=== PATIENT | female | born 1960 | race Caucasian/White ===

== ENCOUNTER 2017-01-22 08:18 | Day surgery (SDC) | payer BC ==
[~2017-01-22] VITALS: Ht 175.3 cm; Wt 100.2 kg
--- NOTE | 2017-01-22 10:10 | Operative Note ---
Colonoscopy ([facility]) Procedure date: 01/22/17 Date of : 60 Procedure:Colonoscopy Colonoscopy with cold biopsies Indications: Mrs. Phipps is a 56-year-old female who recently had a pulmonary embolus bilaterally and was placed on Xarelto. After initiation of this anticoagulation, she developed rectal bleeding which was bright red blood. This subsided after switching to Lovenox. The patient has had no prior colonoscopy. She reports no abdominal pain but has had some RIGHT flank pain since September 2016. She reports no change in bowel habits, weight loss or family history of colon cancer. She was scheduled for colonoscopy before her anticoagulation is adjusted and she is due to go on Eloquis. Performing Provider: Gela Dickerson MD Referrring Provider: Augustin Tamayo M.D./Yung Alex M.D. (hematology/oncology) Sedation: MAC sedation Procedure: Prior to the procedure, a history and physical exam was performed, and patient medications and allergies were reviewed. The risks and benefits of the procedure and the sedation options and risks were discussed with the patient. All questions were answered and informed consent was obtained. Patient identification and proposed procedure were verified by the physician and the nurse. The patient was placed in a left lateral decubitus position. Throughout the procedure, the patient's blood pressure, pulse, and oxygen saturations were monitored continuously. Findings: On digital rectal examination there was normal rectal tone. There were no external hemorrhoids. The colonoscope was introduced through the anal canal to the rectum and advanced to the cecum. The ileocecal valve and appendiceal orifice were identified. The scope was advanced a short distance into the ileum which appeared grossly normal. The scope was then withdrawn into the colon. The cecum, ascending, transverse, descending and sigmoid colon were normal. When the colonoscope was withdrawn into the rectum there was a bulging mass that was umbilicated with central cavitation and strongly suspicious for tumor. This was palpated digitally and was on the LEFT wall of the rectum approximately 8-9 cm from the anal verge. This was very fixed and appeared to be immobile from the underlying pelvic bony structure. Multiple biopsies were obtained. Impressions: 1. 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 I will discuss with her oncologist. I would consider preoperative chemoradiation. She also may require rectal ultrasound for staging. Based upon digital exam, I do feel that this is locally advanced. This is the cause of her bleeding. We will need to discuss anticoagulation as well. Complications: None EBL (ml): 0 at 1010
--- NOTE | 2017-01-22 10:18 | Anesthesia Record ---
Anesthesia Record Part I Total IV fluids: 500 EBL (ml): 0 Urine Output: 0 B/P: 88/42 % SaO2: 96 Pulse: 81 Resps: 16 Temp: 98.1 Patient is: Drowsy, Stable Stable to PACU at: 1007 at 1018
--- NOTE | 2017-01-22 10:19 | Anesthesia Record ---
Anesthesia Record Part II Discharge time: 1037 Destination: HOME PACU nurse assessment review? Yes (SDS) Patient is: Awake, Stable Anesthesia complications? No at 1011
[2017-01-22 11:31] VITALS: BP 119/76
== END 2017-01-22 11:06 | disposition home or self-care (01) ==
LOC: SDC 08:18
PROVIDERS: Internal Medicine Gastroenterology
PROC: 0DBP8ZX Excision of Rectum, Via Natural or Artificial Opening Endoscopic, Diagnostic (ICD-10-PCS; principal; 2017-01-22 09:00)
DX: K62.89 Other specified diseases of anus and rectum (principal)